=== PATIENT | female | born 1930 | race Caucasian/White ===

== ENCOUNTER 2016-02-25 15:14 | Emergency (ER) | payer MEDICARE, BC ==
[~2016-02-25] VITALS: Ht 162.5 cm; Wt 72.1 kg
[~2016-02-25 15:14] MED LIST: ATIVAN0.5 MG PO; CEPHALEXIN500 M1 PO; DAYPRO600 M1 PO; FLAGYL500 MG PO; KLOR-CON 1010 ME1 PO; KLOR-CON 1010 MEQ PO; LIPITOR10 MG PO; LISINOPRIL HCTZ1 TA1 PO; LIVALO4 MG PO; LOMOTIL 0.025 M1 TA1 PO; MEDROL DOSEPAK4 MG PO; PREDNISONE50 MG PO; TYLENOL325 M2 PO; ULTRAM50 MG PO; VIT D; VITAMIN D32000 IU PO; ZOFRAN ODT4 MG SL
[2016-02-25 15:56] VITALS: BP 141/54
[2016-02-25] MEDS ORDERED: CLOBETASOL PROP15 GM TP (15:56)
[2016-02-25] MEDS ORDERED: ATIVAN1 MG PO (15:58)
[2016-02-25] MEDS ORDERED: LISINOPRIL-HYDR1 TA1 PO (15:58)
[2016-02-25] MEDS ORDERED: TYLENOL EXTRA500 MG PO (16:00)
[2016-02-25] MEDS ORDERED: CEPHALEXIN500 M1 PO (17:08)
== END 2016-02-25 17:47 | disposition home or self-care (01) ==
LOC: ED 15:14
DX: L03.115 Cellulitis of right lower limb (principal); Z88.2 Allergy status to sulfonamides; Z88.6 Allergy status to analgesic agent; Z88.8 Allergy status to other drugs, medicaments and biological substances; Z79.899 Other long term (current) drug therapy

== ENCOUNTER → 2016-12-02 | Outpatient (CLI) | payer MEDICARE, BC ==
[~2016-12-02] MED LIST changes: +ATIVAN1 MG PO; +CLOBETASOL PROP15 GM TP; +LISINOPRIL-HYDR1 TA1 PO; +TYLENOL EXTRA500 MG PO
== END | disposition home or self-care (01) ==
LOC: MAMMO 09:12
DX: Z12.31 Encounter for screening mammogram for malignant neoplasm of breast (principal); Z13.820 Encounter for screening for osteoporosis; N95.9 Unspecified menopausal and perimenopausal disorder

== ENCOUNTER 2016-12-15 16:08 | Emergency (ER) | payer MEDICARE, BC ==
[~2016-12-15] VITALS: Wt 68.5 kg
[2016-12-15 16:13] VITALS: BP 163/65
== END 2016-12-15 16:57 | disposition home or self-care (01) ==
LOC: ED 16:08
DX: S20.211A Contusion of right front wall of thorax, initial encounter (principal); Y99.8 Other external cause status; Y92.090 Kitchen in other non-institutional residence as the place of occurrence of the external cause; Y93.89 Activity, other specified; W22.8XXA Striking against or struck by other objects, initial encounter; Z88.2 Allergy status to sulfonamides; Z88.9 Allergy status to unspecified drugs, medicaments and biological substances

== ENCOUNTER → 2017-05-26 | Outpatient (CLI) | payer MEDICARE, BC ==
[2017-05-26 09:26] LABS: BUN 20 mg/dl (7-24); CREATININE 0.76 mg/dL (0.55-1.02)
== END | disposition home or self-care (01) ==
LOC: LAB 08:20
PROVIDERS: Nurse Practitioner Family
DX: R31.9 Hematuria, unspecified (principal)

== ENCOUNTER → 2017-05-28 | Outpatient (CLI) | payer MEDICARE, BC | END | disposition home or self-care (01) | LOC: CT 00:08 | DX: R31.9 Hematuria, unspecified (principal) ==

== ENCOUNTER → 2017-06-21 | Outpatient (CLI) | payer MEDICARE, BC ==
[2017-06-21 09:49] LABS: BILIRUBIN NEGATIVE (NEGATIVE); BLOOD 2+ (NEGATIVE); CLARITY SL CLOUDY (CLEAR); COLOR YELLOW (YELLOW); GLUCOSE NEGATIVE (NEGATIVE); KETONE NEGATIVE (NEGATIVE); LEUKO ESTERASE 1+ (NEGATIVE); NITRITE NEGATIVE (NEGATIVE); SPECIFIC GRAVITY 1.025 (1.005-1.030); UROBILINOGEN 0.2 E.U./dl (0.2-1.0)
[2017-06-21 10:05] LABS: BACTERIA 2+; EPITHELIAL CELLS 20-25; MUCOUS 2+; RBC 16-20 rbc/hpf (0-2)
== END | disposition home or self-care (01) ==
LOC: LAB 09:26
PROVIDERS: Urology
DX: R31.9 Hematuria, unspecified (principal)

== ENCOUNTER 2017-09-23 16:15 | Emergency (ER) | payer MEDICARE, BC ==
[~2017-09-23] VITALS: Ht 162.5 cm; Wt 63.5 kg
[2017-09-23 16:15] VITALS: BP 143/72
[2017-09-23] MEDS ORDERED: PREDNISONE10 MG PO (16:44)
== END 2017-09-23 16:51 | disposition home or self-care (01) ==
LOC: ED 16:15
DX: R21 Rash and other nonspecific skin eruption (principal); R03.0 Elevated blood-pressure reading, without diagnosis of hypertension; Z88.2 Allergy status to sulfonamides; Z88.6 Allergy status to analgesic agent; Z88.8 Allergy status to other drugs, medicaments and biological substances; Z79.899 Other long term (current) drug therapy

== ENCOUNTER → 2018-11-09 | Outpatient (CLI) | payer MEDICARE, BC ==
[~2018-11-09] MED LIST changes: +PREDNISONE10 MG PO
[2018-11-09 09:40] LABS: BASO % 0.6 % (0.0-1.0); EOS # 0.1 10*3/uL (0.0-0.4); EOS % 0.9 % (1.0-4.0); HEMOGLOBIN 13.1 g/dl (12.0-16.0); LYMPH # 1.9 10*3/uL (1.3-4.4); LYMPH % 29.4 % (27.0-41.0); MEAN CELL VOLUME 96.2 fl (81.0-99.0); MEAN CORPUSCULAR HGB 31.5 pg (27.0-31.0); MEAN CORPUSCULAR HGB CONC 32.8 g/dl (33.0-37.0); MEAN PLATELET VOLUME 10.4 fl (9.6-12.3); MONO # 0.5 10*3/uL (0.1-1.0); NEUT % 60.6 % (47.0-73.0); PLATELET COUNT AUTOMATED 188 10*3/uL (130-400); RED BLOOD COUNT 4.16 10*6/uL (4.10-5.10); RED CELL DISTRI WIDTH 12.8 % (0-14.5); WHITE BLOOD COUNT 6.5 10*3/uL (4.8-10.8)
[2018-11-09 09:54] LABS: ALBUMIN 3.9 gm/dl (3.1-4.5); ALKALINE PHOSPHATASE 111 U/L (45-117); BUN 18 mg/dl (7-24); CHLORIDE 107 mmol/L (98-107); CHOLESTEROL 164 mg/dL (<200); CREATININE 0.73 mg/dL (0.55-1.02); FREE T4 1.06 ng/dl (0.76-1.46); HDL CHOLESTEROL 92 mg/dl (40-60); LDL CHOLESTEROL 60 mg/dL (9-159); SGOT/AST 14 IU/L (3-35); SGPT/ALT 13 U/L (12-78); SODIUM 140 mmol/L (136-145); TOTAL PROTEIN 7.3 gm/dL (6.4-8.2); TRIGLYCERIDES 60 mg/dl (<150); VLDL CHOLESTEROL 12 mg/dL (6-40)
[2018-11-09 10:01] LABS: THYROID STIM HORMONE (HS) 0.699 uIU/ml (0.358-4.75)
[2018-11-09 10:21] LABS: VITAMIN D, 25-HYDROXY 27.3 ng/mL (30-100)
== END | disposition home or self-care (01) ==
LOC: LAB 08:51
PROVIDERS: Internal Medicine
DX: I10 Essential (primary) hypertension (principal); E78.2 Mixed hyperlipidemia; D51.0 Vitamin B12 deficiency anemia due to intrinsic factor deficiency

== ENCOUNTER → 2019-02-27 | Outpatient (CLI) | payer MEDICARE, BC | END | disposition home or self-care (01) | LOC: CARD 11:22 | DX: I65.23 Occlusion and stenosis of bilateral carotid arteries (principal); I34.0 Nonrheumatic mitral (valve) insufficiency ==

== ENCOUNTER → 2019-08-17 | Outpatient (CLI) | payer MEDICARE, BC ==
[2019-08-17 11:50] LABS: BASO % 0.6 % (0.0-1.0); EOS # 0.1 10*3/uL (0.0-0.4); EOS % 0.7 % (1.0-4.0); HEMATOCRIT 41.4 % (37.0-47.0); LYMPH # 1.9 10*3/uL (1.3-4.4); LYMPH % 25.9 % (27.0-41.0); MEAN CELL VOLUME 93.2 fl (81.0-99.0); MEAN CORPUSCULAR HGB 30.9 pg (27.0-31.0); MEAN CORPUSCULAR HGB CONC 33.1 g/dl (33.0-37.0); MEAN PLATELET VOLUME 10.7 fl (9.6-12.3); MONO # 0.5 10*3/uL (0.1-1.0); MONO % 7.2 % (3.0-9.0); NEUT # 4.7 10*3/uL (2.3-7.9); NEUT % 65.2 % (47.0-73.0); PLATELET COUNT AUTOMATED 222 10*3/uL (130-400); RED BLOOD COUNT 4.44 10*6/uL (4.10-5.10); RED CELL DISTRI WIDTH 12.3 % (0-14.5); WHITE BLOOD COUNT 7.3 10*3/uL (4.8-10.8)
[2019-08-17 12:06] LABS: BUN 18 mg/dl (7-24); CHLORIDE 105 mmol/L (98-107); CHOLESTEROL 178 mg/dL (<200); CREATININE 0.77 mg/dL (0.55-1.02); POTASSIUM 3.6 mmol/L (3.5-5.1); SGOT/AST 14 IU/L (3-35); SGPT/ALT 14 U/L (12-78); SODIUM 139 mmol/L (136-145); TRIGLYCERIDES 70 mg/dl (<150); VLDL CHOLESTEROL 14 mg/dL (6-40)
[2019-08-17 12:12] LABS: ALKALINE PHOSPHATASE 111 U/L (45-117); FREE T4 1.12 ng/dl (0.76-1.46); HDL CHOLESTEROL 92 mg/dl (40-60); LDL CHOLESTEROL 72 mg/dL (9-159); THYROID STIM HORMONE (HS) 0.531 uIU/ml (0.358-4.75); TOTAL PROTEIN 7.6 gm/dL (6.4-8.2)
[2019-08-17 13:35] LABS: VITAMIN D, 25-HYDROXY 34.5 ng/mL (30-100)
== END | disposition home or self-care (01) ==
LOC: LAB 11:03
PROVIDERS: Internal Medicine
DX: Z00.00 Encounter for general adult medical examination without abnormal findings (principal); I10 Essential (primary) hypertension; E78.2 Mixed hyperlipidemia; E55.9 Vitamin D deficiency, unspecified; D51.9 Vitamin B12 deficiency anemia, unspecified

== ENCOUNTER 2020-07-28 02:35 | Observation (INO) | payer MEDICARE, BC ==
[2020-07-28] VITALS (8 sets, daily range): BP systolic 106–151; BP diastolic 32–68
[~2020-07-28] VITALS: Ht 165.1 cm; Wt 70.3 kg
[2020-07-28 03:14] LABS: BASO % 0.3 % (0.0-1.0); EOS # 0.1 10*3/uL (0.0-0.4); EOS % 0.6 % (1.0-4.0); HEMATOCRIT 44.6 % (37.0-47.0); LYMPH # 2.7 10*3/uL (1.3-4.4); LYMPH % 17.9 % (27.0-41.0); MEAN CELL VOLUME 99.6 fl (81.0-99.0); MEAN CORPUSCULAR HGB 31.7 pg (27.0-31.0); MEAN CORPUSCULAR HGB CONC 31.8 g/dl (33.0-37.0); MEAN PLATELET VOLUME 10.6 fl (9.6-12.3); MONO # 0.7 10*3/uL (0.1-1.0); MONO % 4.7 % (3.0-9.0); NEUT # 11.3 10*3/uL (2.3-7.9); NEUT % 75.4 % (47.0-73.0); PLATELET COUNT AUTOMATED 202 10*3/uL (130-400); RED BLOOD COUNT 4.48 10*6/uL (4.10-5.10); RED CELL DISTRI WIDTH 12.4 % (0-14.5)
[2020-07-28 03:31] LABS: ALBUMIN 3.2 gm/dl (3.1-4.5); ALKALINE PHOSPHATASE 100 U/L (45-117); BUN 22 mg/dl (7-24); CHLORIDE 109 mmol/L (98-107); CPK 72 U/L (26-192); CREATININE 0.98 mg/dL (0.55-1.02); POTASSIUM 3.3 mmol/L (3.5-5.1); SGOT/AST 66 IU/L (3-35); SGPT/ALT 62 U/L (12-78); SODIUM 138 mmol/L (136-145); TOTAL PROTEIN 6.9 gm/dL (6.4-8.2)
[2020-07-28 04:41] LABS: BILIRUBIN Negative (Negative); BLOOD Trace-Lysed (Negative); CLARITY Cloudy (Clear); COLOR Yellow (Yellow); GLUCOSE Negative (Negative); KETONE Negative (Negative); LEUKO ESTERASE 2+ (Negative); NITRITE Negative (Negative); PH 5.5 (4.5-8.0)
[2020-07-28 05:08] LABS: BACTERIA 1+; EPITHELIAL CELLS 16-20; MUCOUS 1+
[2020-07-28] MEDS ORDERED: LIVALO2 M1 PO (19:57)
[2020-07-29] VITALS: BP 143/53
[2020-07-29 06:17] LABS: BASO % 0.3 % (0.0-1.0); EOS % 0.1 % (1.0-4.0); HEMATOCRIT 35.3 % (37.0-47.0); LYMPH # 1.5 10*3/uL (1.3-4.4); LYMPH % 21.7 % (27.0-41.0); MEAN CELL VOLUME 97.8 fl (81.0-99.0); MEAN CORPUSCULAR HGB 32.1 pg (27.0-31.0); MEAN CORPUSCULAR HGB CONC 32.9 g/dl (33.0-37.0); MEAN PLATELET VOLUME 10.7 fl (9.6-12.3); MONO # 0.5 10*3/uL (0.1-1.0); MONO % 7.6 % (3.0-9.0); NEUT % 69.9 % (47.0-73.0); PLATELET COUNT AUTOMATED 146 10*3/uL (130-400); RED BLOOD COUNT 3.61 10*6/uL (4.10-5.10); RED CELL DISTRI WIDTH 12.7 % (0-14.5); WHITE BLOOD COUNT 7.1 10*3/uL (4.8-10.8)
[2020-07-29 06:31] LABS: CHLORIDE 113 mmol/L (98-107); POTASSIUM 3.6 mmol/L (3.5-5.1); SODIUM 140 mmol/L (136-145)
[2020-07-29 06:41] LABS: BUN 15 mg/dl (7-24); CREATININE 0.69 mg/dL (0.55-1.02)
[2020-07-29 08:00] VITALS: BP 133/60
[2020-07-29] MEDS ORDERED: TYLENOL EXTRA500 M2 PO (09:15)
== END 2020-07-29 12:06 | disposition home or self-care (01) ==
LOC: ED 02:35 → EDHOLD 05:06 → 4E 19:28
PROVIDERS: Internal Medicine; ADMIT Internal Medicine; ATTEND Internal Medicine
DX: R55 Syncope and collapse (principal); E87.6 Hypokalemia; A08.4 Viral intestinal infection, unspecified; R11.2 Nausea with vomiting, unspecified; R19.7 Diarrhea, unspecified; I10 Essential (primary) hypertension; Z79.899 Other long term (current) drug therapy

== ENCOUNTER 2020-08-26 09:52 | Inpatient (IN) | payer MEDICARE, BC ==
[~2020-08-26] VITALS: Ht 162.5 cm; Wt 62.7 kg
[~2020-08-26 09:52] MED LIST changes: +LIVALO2 M1 PO; +TYLENOL EXTRA500 M2 PO
[2020-08-26 10:00] VITALS: BP 175/87
[2020-08-26 10:37] LABS: BILIRUBIN Negative (Negative); BLOOD 1+ (Negative); CLARITY Cloudy (Clear); COLOR Yellow (Yellow); GLUCOSE Negative (Negative); KETONE Trace (Negative); LEUKO ESTERASE 2+ (Negative); NITRITE Positive (Negative); SPECIFIC GRAVITY 1.025 (1.001-1.030); UROBILINOGEN 0.2 E.U./dl (0.0-1.0)
[2020-08-26 10:37] LABS: BASO % 0.5 % (0.0-1.0); EOS % 0.3 % (1.0-4.0); HEMATOCRIT 37.7 % (37.0-47.0); LYMPH # 1.4 10*3/uL (1.3-4.4); LYMPH % 20.7 % (27.0-41.0); MEAN CELL VOLUME 96.7 fl (81.0-99.0); MEAN CORPUSCULAR HGB 31.8 pg (27.0-31.0); MEAN CORPUSCULAR HGB CONC 32.9 g/dl (33.0-37.0); MEAN PLATELET VOLUME 10.3 fl (9.6-12.3); MONO # 0.5 10*3/uL (0.1-1.0); MONO % 8.3 % (3.0-9.0); NEUT # 4.5 10*3/uL (2.3-7.9); NEUT % 69.3 % (47.0-73.0); PLATELET COUNT AUTOMATED 198 10*3/uL (130-400); RED CELL DISTRI WIDTH 12.7 % (0-14.5); WHITE BLOOD COUNT 6.5 10*3/uL (4.8-10.8)
[2020-08-26 10:41] LABS: BACTERIA 4+; EPITHELIAL CELLS 16-20; WBC TNTC wbc/hpf (0-5)
[2020-08-26 10:50] LABS: ALBUMIN 3.4 gm/dl (3.1-4.5); ALKALINE PHOSPHATASE 131 U/L (45-117); BUN 17 mg/dl (7-24); CHLORIDE 111 mmol/L (98-107); CREATININE 0.84 mg/dL (0.55-1.02); POTASSIUM 3.5 mmol/L (3.5-5.1); SGOT/AST 10 IU/L (3-35); SGPT/ALT 13 U/L (12-78); SODIUM 141 mmol/L (136-145); TOTAL PROTEIN 6.9 gm/dL (6.4-8.2)
[2020-08-26 11:15] VITALS: BP 164/82
[2020-08-26] MEDS ORDERED: LORAZEPAM0.5 MG PO (11:40)
[2020-08-26] MEDS ORDERED: CICLOPIROX15 GM T (11:42)
[2020-08-26 12:07] VITALS: BP 168/84
[2020-08-26 12:40] VITALS: BP 158/56
[2020-08-26] MEDS ORDERED: Bactroban Oint22 GM T (13:09)
[2020-08-26 16:00] VITALS: BP 139/54
[2020-08-26 20:00] VITALS: BP 140/72; BP 169/69
[2020-08-27] VITALS: BP 157/73
[2020-08-27 08:00] VITALS: BP 160/80
[2020-08-27 12:00] VITALS: BP 151/56
[2020-08-27 16:00] VITALS: BP 129/62
[2020-08-27 20:00] VITALS: BP 177/72
[2020-08-28] VITALS: BP 156/74
[2020-08-28 08:00] VITALS: BP 158/74
[2020-08-28 16:00] VITALS: BP 142/57
[2020-08-28 20:00] VITALS: BP 146/63
[2020-08-29] VITALS: BP 153/65
[2020-08-29 06:40] LABS: BASO % 0.4 % (0.0-1.0); EOS # 0.1 10*3/uL (0.0-0.4); EOS % 0.7 % (1.0-4.0); HEMATOCRIT 35.8 % (37.0-47.0); LYMPH # 1.4 10*3/uL (1.3-4.4); LYMPH % 18.8 % (27.0-41.0); MEAN CELL VOLUME 95.7 fl (81.0-99.0); MEAN CORPUSCULAR HGB 32.4 pg (27.0-31.0); MEAN CORPUSCULAR HGB CONC 33.8 g/dl (33.0-37.0); MEAN PLATELET VOLUME 10.6 fl (9.6-12.3); MONO # 0.7 10*3/uL (0.1-1.0); MONO % 9.9 % (3.0-9.0); NEUT % 69.6 % (47.0-73.0); PLATELET COUNT AUTOMATED 208 10*3/uL (130-400); RED BLOOD COUNT 3.74 10*6/uL (4.10-5.10); WHITE BLOOD COUNT 7.2 10*3/uL (4.8-10.8)
[2020-08-29 06:50] LABS: CHLORIDE 109 mmol/L (98-107); POTASSIUM 3.9 mmol/L (3.5-5.1); SODIUM 141 mmol/L (136-145)
[2020-08-29 07:08] LABS: BUN 18 mg/dl (7-24); CREATININE 0.55 mg/dL (0.55-1.02)
[2020-08-29] MEDS ORDERED: LIPITOR10 MG PO (07:29)
[2020-08-29] MEDS ORDERED: LISINOPRIL20 MG PO (07:29)
[2020-08-29] MEDS ORDERED: LEVOFLOXACIN500 MG PO (07:29)
== END 2020-08-29 08:30 | disposition home or self-care (01) | DRG 689 ==
LOC: ED 09:52 → 5E 11:05 → EDHOLD 11:05 → 5E 12:04
PROVIDERS: Family Medicine; ADMIT Internal Medicine; ATTEND Internal Medicine
DX: N39.0 Urinary tract infection, site not specified (principal); G93.41 Metabolic encephalopathy; I10 Essential (primary) hypertension; E87.6 Hypokalemia; F41.1 Generalized anxiety disorder; G89.29 Other chronic pain; M54.5 Low back pain; E78.2 Mixed hyperlipidemia; R31.9 Hematuria, unspecified; G30.9 Alzheimer's disease, unspecified; B96.89 Other specified bacterial agents as the cause of diseases classified elsewhere; F02.80 Dementia in other diseases classified elsewhere, unspecified severity, without behavioral disturbance, psychotic disturbance, mood disturbance, and anxiety; Z88.6 Allergy status to analgesic agent; Z88.2 Allergy status to sulfonamides; Z88.8 Allergy status to other drugs, medicaments and biological substances

== ENCOUNTER → 2020-10-29 | Outpatient (CLI) | payer MEDICARE, BC ==
[~2020-10-29] MED LIST changes: +Bactroban Oint22 GM T; +CICLOPIROX15 GM T; +LEVOFLOXACIN500 MG PO; +LISINOPRIL20 MG PO; +LORAZEPAM0.5 MG PO
== END | disposition home or self-care (01) ==
LOC: US 09:25
PROVIDERS: ATTEND Internal Medicine
DX: I65.23 Occlusion and stenosis of bilateral carotid arteries (principal); G93.89 Other specified disorders of brain